=== PATIENT | male | born 1950 | race Caucasian/White ===

== ENCOUNTER 2024-01-31 14:47 | Inpatient (IN) | payer OTHER, MEDICARE, SELFPAY ==
[2024-01-31] VITALS (16 sets, daily range): BP systolic 135–175; BP diastolic 78–98; PULSE 68–77; RESP 14–21; TEMP 36.4–36.9; O2SAT 98–100; BMI 16.7
--- NOTE | ~2024-01-31 | MR_ITS ---
EXAMINATION: MR brain/brain stem wo/w con DATE: 02/01/2024 08:46 INDICATION: Altered mental status TECHNIQUE: Magnetic resonance imaging (MRI) of the brain and brainstem was performed without and with 15 mL Multihance intravenous contrast. Sequences included sagittal and axial T1-weighted SE, axial d iffusion-weighted FS SE, axial T2*-weighted GRE, axial T2-weighted FLAIR, and axial T2-weighted FSE. Postcontrast axial and coronal T1-weighted SE was obtained. Apparent diffusion coefficient (ADC) maps were created. COMPARISON: None. FINDINGS: There are no areas of restricted diffusion to suggest acute infarction. No intracranial hemorrhage or abnormal intracranial mass lesion. There are scattered areas of nonspecific increased T2-weighted si gnal intensity in the cerebral and pontine white matter, predominantly involving the deep and periven tricular white matter. There are no intraparenchymal signal abnormalities seen on the other pulse seq uences. The ventricles are symmetric and normal in size. There are no abnormal extra-axial fluid lela ections. Flow voids are seen in the cerebral arteries on the T2-weighted sequences consistent with th eir expected patency. Changes of right intraocular lens replacement. Mild mucosal thickening the ethm oid sinuses. There are no areas of abnormal enhancement on the post contrast images. IMPRESSION: 1. Moderate scattered nonspecific white matter and pontine white matter T2 hyperintensity most likely sequela of chronic small vessel ischemic disease. No acute intracranial process. Reviewed, dictated and finalized at location A. OGRAPHIC PROOFER APPRENTICE IMPRESSION: 1. Moderate scattered nonspecific white matter and pontine white matter T2 hype rintensity most likely sequela of chronic small vessel ischemic disease. No acu te intracranial process.
--- NOTE | ~2024-01-31 | CT_ITS ---
EXAMINATION: CT chest abdomen pelvis w con DATE: 01/31/2024 19:26 INDICATION: Altered mental status. Fall. No urinary output. TECHNIQUE: Computed tomography (CT) of the chest, abdomen, and pelvis was performed with 100 mL Omnip aque 350 intravenous contrast. Automated exposure control and iterative reconstruction technique were employed. The dose-length product was 601.28 mGy-cm. COMPARISON: None FINDINGS: CHEST CT: The lungs demonstrate mild atelectasis. A calcified right lung nodule and calcified mediastinal lymph nodes are consistent with old granulomatous disease. There is a 5 mm nodule in right lower lobe, lik jarett benign. There is a 5 mm nodule in right middle lobe, likely benign. No pleural effusion. The hear t size is normal. There are coronary artery calcifications. No pericardial effusion. ABDOMEN/PELVIS CT: The liver demonstrates heterogeneous attenuation and surface nodularity, consistent with cirrhosis. T here is a 3.4 cm mass of hyperenhancement in right hepatic lobe. There is a 5.3 cm mass of hyperenhan cement in right hepatic lobe. The spleen, gallbladder, pancreas, and adrenal glands are normal. Right kidney is absent. There is cortical thinning of left kidney. There is calcified atherosclerosis of t he aorta and many of the other arteries. There is a Amaro catheter in expected position. Stool disten ds the rectosigmoid. The appendix is not visualized. There is chronic total occlusion of proximal sup erior mesenteric artery with reconstitution. There is mild stenosis of celiac axis. There is no signi ficant stenosis of inferior mesenteric artery. There are no pathologically enlarged lymph nodes. Ther e is no free intraperitoneal fluid. There is an intertrochanteric fracture of proximal right femur wi th internal fixation. There is screw fixation of proximal left femur. There are chronic fractures of T10 and T12 vertebral bodies with changes of vertebroplasty at T10. IMPRESSION: 1. Cirrhosis of the liver. 2. Areas of hyperenhancement in the liver, which are indeterminate for hepatocellular carcinoma. Cons ider abdomen MRI without and with contrast. 3. 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 Reviewed, dictated and finalized at location E. ATRIC CLINICAL NURSE SPECIALIST IMPRESSION: 1. Cirrhosis of the liver. 2. Areas of hyperenhancement in the liver, which are indeterminate for hepatoce llular carcinoma. Consider abdomen MRI without and with contrast. 3. 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
--- NOTE | ~2024-01-31 | CT_ITS ---
EXAMINATION: CT brain wo con DATE: 01/31/2024 19:25 INDICATION: Altered mental status. TECHNIQUE: Computed tomography (CT) of the head was performed without intravenous contrast. The mA wa s adjusted according to patient size. Iterative reconstruction technique was employed. The dose-lengt h product was 681.00 mGy-cm. COMPARISON: None FINDINGS: There are scattered areas of low attenuation in the cerebral white matter. There is no intr acranial hemorrhage, acute infarction, or abnormal intracranial mass lesion. The ventricles are nader l in size. There are likely changes of right ocular lens replacement surgery. There is mild mucosal t hickening in the paranasal sinuses. The mastoid air cells are normal. IMPRESSION: 1. Moderate nonspecific cerebral white matter disease, which likely represents chronic small vessel i schemic disease. Reviewed, dictated and finalized at location E. YLENE TORCH BURNER IMPRESSION: 1. Moderate nonspecific cerebral white matter disease, which likely represents chronic small vessel ischemic disease.
[2024-01-31 16:12] LABS: Appearance Urine Clear (Clear); Bacteria Urine None Seen /hpf; Bilirubin Urine Negative (Negative); Blood Urine Negative (Negative); Color Urine Yellow (Yellow); Glucose Urine UA Negative (Negative); Ketones Urine 1+ mg/dL (Negative); Leukocyte Esterase Ur Negative LEU/UL (Negative); Nitrate Urine Negative (Negative); Non Pathogenic Casts 0-2; Protein Urine Trace mg/dL (Negative); RBC Urine 0-2 /hpf (0-2); Specific Grav Ur 1.032 (1.001-1.035); Squamous Epithelial Cell Urine None seen /hpf (Few); Urobilinogen Urine 0.2 mg/dL (<2.0); WBC Urine 0-5 /hpf; pH Urine 5.5 (5.0-9.0)
[2024-01-31 16:37] LABS: Add Urine Microscopic? YES
--- NOTE | 2024-01-31 16:40 | ED.MALEGU ---
HPI - Male Genitourinary General Chief complaint: Urogenital-Male <Maddie Larios MD - Last Filed: 02/01/24 09:25> Stated complaint: no urine output <Maddie Larios MD - Last Filed: 02/01/24 09:25> Time Seen by Provider: 01/31/24 16:39 <Maddie Larios MD - Last Filed: 02/01/24 09:25> History of Present Illness HPI Narrative: Patient is a 73-year-old male with history of prior kidney cancer, lung cancer, believed to be in remission, diabetes here with multiple complaints. Patient typically goes to [facility] in [place]. His primary care doctor is Dr. Cr. The family last saw him around or Monday. They state he was behaving his normal self at that time. On Monday he began having some slurred speech and they appreciated a possible left-sided facial droop. They note that his speech was fairly nonsensical and he was talking about traveling recently to places where he has not traveled. They note that when they visited him yesterday he seemed to be reaching at things that were not there. Yesterday he rolled out of bed and fell to the ground. He was sent to [facility] in [place]. There he had a CT scan performed of his brain which was negative and basic lab work and he was sent back to his facility. After discussions with his primary care doctor today patient's family and primary care doctor were concerned that something further is going on and recommended he go to [facility] for 2nd opinion. Family denies fever or chills. They deny cough or congestion. They do note that he seemed to have no urinary output since he left for the hospital yesterday. He currently lives at [facility] in [place]. Of note they have noted significant weight loss over last several months. He had a outpatient CT performed which had shown some lesions in his liver, he had a liver biopsy about 1 month ago and they had planned for him to have a repeat CT scan because they had a difficult time locating the lesions for biopsy. He reportedly had this CT performed at [address] on Monday. <Maddie Larios MD - Last Filed: 02/01/24 09:25> Patient is a 73-year-old male with history of prior kidney cancer, lung cancer, believed to be in remission, diabetes here with multiple complaints. Patient typically goes to [facility] in [place]. His primary care doctor is Dr. Cr. The family last saw him around or Monday. They state he was behaving his normal self at that time. On Monday he began having some slurred speech and they appreciated a possible left-sided facial droop. They note that his speech was fairly nonsensical and he was talking about traveling recently to places where he has not traveled. They note that when they visited him yesterday he seemed to be reaching at things that were not there. Yesterday he rolled out of bed and fell to the ground. He was sent to [facility] in [place]. There he had a CT scan performed of his brain which was negative and basic lab work and he was sent back to his facility. After discussions with his primary care doctor today patient's family and primary care doctor were concerned that something further is going on and recommended he go to [facility] for 2nd opinion. Family denies fever or chills. They deny cough or congestion. They do note that he seemed to have no urinary output since he left for the hospital yesterday. He currently lives at [facility]term in [place]. Of note they have noted significant weight loss over last several months. He had a outpatient CT performed which had shown some lesions in his liver, he had a liver biopsy about 1 month ago and they had planned for him to have a repeat CT scan because they had a difficult time locating the lesions for biopsy. He reportedly had this CT performed at [facility] on Monday. <Indira Moralez MD - Last Filed: 01/31/24 20:33> Related Data Home medications: Home Medic
[2024-01-31 18:01] LABS: Basophils Absolute Auto 0.1 K/mm3 (0.0-0.1); Basophils Percent Auto 0.7 % (0.2-1.2); Eosinophils Absolute Auto 0.1 K/mm3 (0-0.3); Hemoglobin 11.3 g/dL (14.0-18.0); Immature Granulocyte Absolute 0.04 K/mm3 (0.00-0.031); Immature Granulocyte Percent A 0.5 % (0-0.5); Lymphocytes Percent Auto 31.4 % (18.3-44.2); Mean Corpuscular HGB Conc 31.4 g/dl (32-36); Mean Corpuscular Hemoglobin 27.4 pg (26-34); Mean Corpuscular Volume 87.4 fl (80-100); Mean Platelet Volume 9.9 fl (7.4-10.4); Monocytes Absolute Auto 0.7 K/mm3 (0.1-0.6); Monocytes Percent Auto 7.9 % (2.6-8.5); Neutrophils Percent Auto 58.5 % (45.5-73.1); Platelet Count Result 209 k/mm3 (150-375); Red Blood Count 4.12 M/mm3 (4.6-6.20); Red Cell Distribution Width 16.3 % (11.5-14.5); White Blood Count 8.6 K/mm3 (4.5-10.0)
[2024-01-31 18:12] LABS: Ammonia < 9 umol/L (9-30); INR 1.1
[2024-01-31 18:17] LABS: Lactic Acid Reflex 0.9 mmol/L (0.7-2.0)
[2024-01-31 18:18] LABS: Alanine Aminotransferase 19 U/L (6-50); Albumin Level 4.1 g/dL (3.5-5.1); Alkaline Phosphatase 183 U/L (38-126); Anion Gap 8 mmol/L (8-16); Aspartate Amino Transferase 32 U/L (17-59); Bilirubin,Total 0.5 mg/dL (0.2-1.3); Blood Urea Nitrogen 25 mg/dL (9-20); CRP 0.8 mg/dL (<1.0); Calcium 10.1 mg/dL (8.4-10.2); Carbon Dioxide 25 mmol/L (22-30); Chloride 101 mmol/L (98-107); Estimated Glomerular Filt Rate > 60; Glucose 145 mg/dL (65-110); Lipase 34 U/L (23-300); Potassium 4.1 mmol/L (3.4-5.0); Sodium 134 mmol/L (137-145)
--- NOTE | 2024-01-31 19:29 | PC.NURSE ---
Assumed care of pt. Pt taken off bedpan to go to CT. No results in bedpan, but thinks he was successful. Family at bedside.
--- NOTE | 2024-01-31 20:21 | PM.IMHP ---
H&P: HPI History of Present Illness Date/Time: 01/31/24 20:21 Chief Complaint: ams Narrative: This is a 73-year-old male with past medical history significant for hepatocellular carcinoma, treated somewhere else, patient was brought to the emergency room due to altered mental status according to family members with significant decline in the last few days had been seen at another facility and discharged home however family persisted and brought him to our emergency room for further evaluation. At the time of my visit patient is obtunded, lethargic, unable to give any history. EXAMINATION: CT brain wo con DATE: 01/31/2024 19:25 INDICATION: Altered mental status. TECHNIQUE: Computed tomography (CT) of the head was performed without intravenous contrast. The mA was adjusted according to patient size. Iterative reconstruction technique was employed. The dose-length product was 681.00 mGy-cm. COMPARISON: None FINDINGS: There are scattered areas of low attenuation in the cerebral white matter. There is no intracranial hemorrhage, acute infarction, or abnormal intracranial mass lesion. The ventricles are normal in size. There are likely changes of right ocular lens replacement surgery. There is mild mucosal thickening in the paranasal sinuses. The mastoid air cells are normal. IMPRESSION: 1. Moderate nonspecific cerebral white matter disease, which likely represents chronic small vessel ischemic disease. EXAMINATION: CT chest abdomen pelvis w con DATE: 01/31/2024 19:26 INDICATION: Altered mental status. Fall. No urinary output. TECHNIQUE: Computed tomography (CT) of the chest, abdomen, and pelvis was performed with 100 mL Omnipaque 350 intravenous contrast. Automated exposure control and iterative reconstruction technique were employed. The dose-length product was 601.28 mGy-cm. COMPARISON: None FINDINGS: CHEST CT: The lungs demonstrate mild atelectasis. A calcified right lung nodule and calcified mediastinal lymph nodes are consistent with old granulomatous disease. There is a 5 mm nodule in right lower lobe, likely benign. There is a 5 mm nodule in right middle lobe, likely benign. No pleural effusion. The heart size is normal. There are coronary artery calcifications. No pericardial effusion. ABDOMEN/PELVIS CT: The liver demonstrates heterogeneous attenuation and surface nodularity, consistent with cirrhosis. There is a 3.4 cm mass of hyperenhancement in right hepatic lobe. There is a 5.3 cm mass of hyperenhancement in right hepatic lobe. The spleen, gallbladder, pancreas, and adrenal glands are normal. Right kidney is absent. There is cortical thinning of left kidney. There is calcified atherosclerosis of the aorta and many of the other arteries. There is a Amaro catheter in expected position. Stool distends the rectosigmoid. The appendix is not visualized. 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 There is mild stenosis of celiac axis. There is no significant stenosis of inferior mesenteric artery. There are no pathologically enlarged lymph nodes. There is no free intraperitoneal fluid. There is an intertrochanteric fracture of proximal right femur with internal fixation. There is screw fixation of proximal left femur. There are chronic fractures of T10 and T12 vertebral bodies with changes of vertebroplasty at T10. IMPRESSION: 1. Cirrhosis of the liver. 2. Areas of hyperenhancement in the liver, which are indeterminate for hepatocellular carcinoma. Consider abdomen MRI without and with contrast. 3. 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 Review of Systems Review of Systems: ROS unobtainable: Yes unobtainable due to mental status PMFSH Social History Social History Alcohol intake: never Substance use: never Substance use type: does not use Spiritual care concerns: No Meds Home Medications and Allergies Home Medicat
--- NOTE | 2024-01-31 21:30 | PC.NURSE ---
Family requesting to speak with ERP prior to pt going to floor.
[2024-02-01 05:25] VITALS: BP 154/90; PULSE 76; RESP 20; TEMP 35.7; O2SAT 100
--- NOTE | 2024-02-01 06:58 | PM.IMPN ---
Progress Note: A&P Assessment and Plan (1) Acute confusion: Code(s): R41.0 - Disorientation, unspecified Status: Acute Assessment and Plan: admit to regular medical floor MRI of the brain in the morning (2) Acute urinary retention: Code(s): R33.8 - Other retention of urine Status: Acute Assessment and Plan: resolved (3) Encephalopathy: Code(s): G93.40 - Encephalopathy, unspecified Status: Acute Assessment and Plan: likely to endocrine or metabolic (4) Adult failure to thrive: Code(s): R62.7 - Adult failure to thrive Status: Acute Assessment and Plan: patient with metastatic hepatocellular carcinoma consider hospice (5) 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 HEAD: Normocephalic, atraumatic. EYES: PERRLA and EOMI. ENT: Nares clear. Mucous membranes moist. NECK: Supple. CHEST: Clear to auscultation. No respiratory distress. HEART: Regular rate and rhythm. Normal peripheral pulses. ABDOMEN: Soft, nontender, nondistended. EXTREMITIES: Normal range of motion. No edema. SKIN: Warm, dry, no rash. NEURO: No focal deficits. Alert and oriented x2 Objective Data Vital Signs Vital Signs: Vital Signs - 24 hr 01/31/24 14:48 01/31/24 16:45 01/31/24 16:00 Temperature 98.4 F Pulse Rate 76 71 68 Respiratory Rate 16 16 16 Blood Pressure 160/98 H 148/85 H 154/90 H Pulse Oximetry 100 100 100 Oxygen Delivery Room Air 01/31/24 15:15 01/31/24 15:01 01/31/24 15:16 Temperature Pulse Rate 69 71 69 Respiratory Rate 16 17 17 Blood Pressure 152/87 H 152/87 H 150/78 H Pulse Oximetry 98 100 Oxygen Delivery 01/31/24 15:31 01/31/24 15:46 01/31/24 16:01 Temperature Pulse Rate 70 70 68 Respiratory Rate 14 17 19 Blood Pressure 154/80 H 169/93 H 154/90 H Pulse Oximetry 100 99 98 Oxygen Delivery 01/31/24 16:16 01/31/24 16:31 01/31/24 16:46 Temperature Pulse Rate 77 68 71 Respiratory Rate 20 18 17 Blood Pressure 148/86 H 167/94 H 148/85 H Pulse Oximetry 99 100 100 Oxygen Delivery 01/31/24 17:31 01/31/24 18:00 01/31/24 22:39 Temperature Pulse Rate 73 74 74 Respiratory Rate 16 21 H 21 H Blood Pressure 175/93 H 170/90 H Pulse Oximetry 100 100 100 Oxygen Delivery Room Air 01/31/24 22:35 02/01/24 05:25 Temperature 97.6 F 96.3 F L Pulse Rate 70 76 Respiratory Rate 18 20 Blood Pressure 135/87 154/90 H Pulse Oximetry 100 100 Oxygen Delivery Intake/Output Intake/Output: Intake & Output 01/29/24 01/30/24 01/31/24 02/01/24 23:59 23:59 23:59 23:59 Intake Total 0 Output Total 400 Balance -400 Meds/Results Radiology Results: ITS Impressions Head CT 01/31/24 19:25 IMPRESSION: 1. Moderate nonspecific cerebral white matter disease, which likely represents chronic small vessel ischemic disease. Chest/Abdomen/Pelvis CT 01/31/24 19:27 IMPRESSION: 1. Cirrhosis of the liver. 2. Areas of hyperenhancement in the liver, which are indeterminate for hepatocellular carcinoma. Consider abdomen MRI without and with contrast. 3. 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 Labs Labs: Laboratory Results - last 24 hr 01/31/24 01/31/24 01/31/24 15:58 17:51 17:52 WBC RBC Hgb Hct MCV MCH MCHC RDW Plt Count MPV Immature Gran % (Auto) Neut % (Auto) Lymph % (Auto) [place] % (Auto) Eos % (Auto) Baso % (Auto) Lymph # (Auto) [place] # (Auto) Eos # (Auto) Baso # (Auto) Abs Immat Gran (auto) Absolute Neuts (auto) Absolute Nucleated
[2024-02-01 07:26] LABS: Hematocrit 38.2 % (42.0-52.0); Hemoglobin 11.6 g/dL (14.0-18.0); Mean Corpuscular HGB Conc 30.4 g/dl (32-36); Mean Corpuscular Hemoglobin 26.9 pg (26-34); Mean Corpuscular Volume 88.4 fl (80-100); Mean Platelet Volume 10.5 fl (7.4-10.4); Platelet Count Result 209 k/mm3 (150-375); Red Blood Count 4.32 M/mm3 (4.6-6.20); Red Cell Distribution Width 16.2 % (11.5-14.5); White Blood Count 8.7 K/mm3 (4.5-10.0)
[2024-02-01 07:32] LABS: Alanine Aminotransferase 20 U/L (6-50); Albumin Level 4.2 g/dL (3.5-5.1); Alkaline Phosphatase 186 U/L (38-126); Anion Gap 12 mmol/L (8-16); Aspartate Amino Transferase 31 U/L (17-59); Bilirubin,Total 0.6 mg/dL (0.2-1.3); Blood Urea Nitrogen 24 mg/dL (9-20); Calcium 10.2 mg/dL (8.4-10.2); Carbon Dioxide 25 mmol/L (22-30); Chloride 99 mmol/L (98-107); Estimated CRCL calculation 44 ml/min; Estimated Glomerular Filt Rate > 60; Glucose 137 mg/dL (65-110); Sodium 136 mmol/L (137-145)
[2024-02-01] MEDS: PANTOPRAZOLE 40 MG TABLET PO (09:10)
[2024-02-01] MEDS: MAGNESIUM OXIDE 400 MG TABLET PO (09:11)
[2024-02-01] MEDS: LEVOTHYROXINE SODIUM 25 MCG TABLET PO (09:11)
[2024-02-01] MEDS: FLUoxetine HCL 20 MG CAPSULE 60 MG PO (09:11)
[2024-02-01] MEDS: APIXABAN 5 MG TABLET PO (09:11)
[2024-02-01] MEDS: FERROUS GLUCONATE 324 MG TABLET PO (09:11)
[2024-02-01] MEDS: buPROPion HCL XL (24 HR) 150 MG TABCR PO (09:11)
[2024-02-01] MEDS: ACETAMINOPHEN 325 MG TABLET 650 MG PO ×2 (09:11→09:19)
[2024-02-01] MEDS: SENNOSIDES 8.6 MG TABLET PO (09:11)
[2024-02-01] MEDS: LORazepam (*CRX) 0.5 MG TABLET PO (09:11)
[2024-02-01] MEDS: polyethylene glycoL 3350 17 GM POWD.PACK PO (09:12)
[2024-02-01 09:18] VITALS: BP 124/106; PULSE 76; RESP 14; O2SAT 100
[2024-02-01] MEDS: METOPROLOL TARTRATE 50 MG TAB PO (09:18)
[2024-02-01] MEDS: ATORVASTATIN 40 MG TABLET PO (09:19)
--- NOTE | 2024-02-01 11:58 | WPDNEURCNPN ---
Assessment and Plan Assessment and plan (1) Metabolic encephalopathy: Code(s): G93.41 - Metabolic encephalopathy Status: Acute Assessment and Plan: Patient has a myoclonic jerks or asterixis 6 which are significant. Underlying factors such as sepsis should be looked into. Ammonia level was normal this of course does not exclude possibility of hepatic encephalopathy which is most likely given the fact that he has history of cirrhosis of liver and has been drinking alcohol and probably not eating very much. (2) Cirrhosis of liver: Code(s): K74.60 - Unspecified cirrhosis of liver Status: Acute Assessment and Plan: Most likely longstanding cirrhosis of liver from drinking alcohol. Possible hepatocellular carcinoma has been raised. Patient had undergone biopsy but we do not (3) Metastatic renal cell carcinoma: Code(s): C64.9 - Malignant neoplasm of unspecified kidney, except renal pelvis Status: Acute Assessment and Plan: The patient has been under care of oncologist since the diagnosis of major in 2021. Patient had chemotherapy and nephrectomy (4) Chronic alcoholism: Code(s): F10.20 - Alcohol dependence, uncomplicated Status: Acute Assessment and Plan: Patient has a long history of drinking alcohol and had been a recurrence recently according to his sisters Plan I talked to the family members the 3 ladies were very concerned about him. His overall condition and prognosis is guarded since the been a significant decline in his condition over the last 2 years. He has been bed last several months. He appears cachectic and confused and has myoclonic jerks apathy look for any underlying infection and treated if you find along. Seizure lactulose. We can check serum B12 D level keep him on his vitamin supplementation however family is already looking at possibly making him DNR and comfort measures and I shall be glad to discuss this further Consult date: 02/01/24 Time Seen: 11:59 Reason for consult: Changes in mental status HPI: Yunier Madden is a 73 year old male history of renal cancer and cirrhosis of liver admitted to the hospital with significant decline in the mental status over the last 4- 5 days. Three of the family members were present at the time of this evaluation and the indeed very concerned. The patient has been battling with the cancer to lung herpes had a kidney surgery 2021 and 2 he has been dealing with the cancer doctors at [facility] if the family thinks that to while he was living by himself since he was continued to decline. He had a fracture of the last July. To that he has been more less bed-bound. His overall decline but the mental status with okay until recently. He might have had some episodes of confusion since he would not show up for the appointments accordingly the oldest sister he does have a long history of drinking alcohol. No history of stroke. MRI of the brain and CT scan of brain performed on this admission did not show any significant abnormalities except some chronic aging changes. Review of Systems Review of Systems: No history of recent trauma or febrile illness preceding this admission. ROS unobtainable: Yes unobtainable due to mental status PMFSH Past Medical History Medical History (Updated 02/01/24 @ 12:05 by Rigo Snyder MD) Chronic alcoholism Cirrhosis of liver Metabolic encephalopathy Metastatic renal cell carcinoma Social History Social History Alcohol intake: never Substance use: never Substance use type: does not use Spiritual care concerns: No Meds Home Medications and Allergies Home Medications Medication Instructions Recorded Confirmed Type Milk of Magnesia 400 mg BYMOUTH DAILY PRN 02/01/24 02/01/24 History Constipation Miralax 17 g DAILY 02/01/24 02/01/24 History O'Brien 5 mg BID PRN Pain 02/01/24 02/01/24 History acetaminophen 650 mg 650 mg PO Q
--- NOTE | 2024-02-01 13:23 | PCNEURO ---
Cancelling EEG. Patient family does not wany any more test done.
[2024-02-01 14:00] VITALS: BP 128/99; PULSE 78; RESP 20; TEMP 36.6; O2SAT 98
[2024-02-01 14:41] LABS: Folic Acid 5.3 ng/mL (2.76->20)
--- NOTE | 2024-02-01 14:48 | P.DS_ITS ---
DS: Admitting Diagnosis Discharge Date 02/01/24 Admitting Diagnosis AMS DS: Discharge Diagnosis Discharge Diagnosis (1) Acute confusion: Code(s): R41.0 - Disorientation, unspecified Status: Acute Assessment and Plan: * family bedside noted patient has been confused since Monday. 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 observed with jerking movement, reaching for objects when none are present * neurology was consulted * after neurological exam and discussion with family, family states they would like no further treatment. family expressed that they would like to return to [facility] and they will initiate hospice services. family declined initiation of hospice service while in hospital. patient's sister and POA Cee, verbalized that she would not like any further assessment, labs, or test. patient observed verbalizing agreeance with no further assessment and being discharged to [facility] facility. (2) Acute urinary retention: Code(s): R33.8 - Other retention of urine Status: Acute Assessment and Plan: * Amaro placed in the ER, after note that patient has not voided in greater than 10 hours * Amaro in place draining clear yellow urine * patient verbalized he is without pain * patient is immobile and has been immobile since July, when he had a hip fracture incident. * patient and POA Cee and family at bedside and wished for patient to have no further assessment labs or tests. expressed that they would like no further treatment. request for discharge back to [facility] facility and there they will establish hospice services. (3) Encephalopathy: Code(s): G93.40 - Encephalopathy, unspecified Status: Acute Assessment and Plan: * likely endocrine or metabolic * most likely related to liver issues * patient presents with altered mental status, had periods of orientation * Neurology was consulted and suggest most likely metabolic * neurology note myotonic jerks, ammonia level normal however does not exclude possibility of hepatic encephalopathy given history of cirrhosis * patient and POA Cee and family at bedside and wished for patient to have no further assessment labs or tests. expressed that they would like no further treatment. request for discharge back to [facility] facility and there they will establish hospice services. (4) Adult failure to thrive: Code(s): R62.7 - Adult failure to thrive Status: Acute Assessment and Plan: * discussion with family notes that patient has progressively declined over last 2 years. new confusion was noted Monday. family expressed bed patient would eat minimally, has lost great amount weight, had been previously hospitalized for this, and refused feeding tube. * discussed the options for treatment, family declined * patient and POA Cee and family at bedside and wished for patient to have no further assessment labs or tests. expressed that they would like no further treatment. request for discharge back to [facility] facility and there they will establish hospice services. 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
--- NOTE | 2024-02-01 14:48 | PM.DS ---
DS: Admitting Diagnosis Discharge Date 02/01/24 Admitting Diagnosis AMS DS: Discharge Diagnosis Discharge Diagnosis (1) Acute confusion: Code(s): R41.0 - Disorientation, unspecified Status: Acute Assessment and Plan: family bedside noted patient has been confused since Monday. 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 observed with jerking movement, reaching for objects when none are present neurology was consulted after neurological exam and discussion with family, family states they would like no further treatment. family expressed that they would like to return to [facility] facility and they will initiate hospice services. family declined initiation of hospice service while in hospital. patient's sister and POA Cee, verbalized that she would not like any further assessment, labs, or test. patient observed verbalizing agreeance with no further assessment and being discharged to [facility] facility. (2) Acute urinary retention: Code(s): R33.8 - Other retention of urine Status: Acute Assessment and Plan: Amaro placed in the ER, after note that patient has not voided in greater than [address] draining clear yellow urine patient verbalized he is without pain patient is immobile and has been immobile since July, when he had a hip fracture incident. patient and POA Cee and family at bedside and wished for patient to have no further assessment labs or tests. expressed that they would like no further treatment. request for discharge back to [facility] facility and there they will establish hospice services. (3) Encephalopathy: Code(s): G93.40 - Encephalopathy, unspecified Status: Acute Assessment and Plan: likely endocrine or metabolic most likely related to liver issues patient presents with altered mental status, had periods of orientation Neurology was consulted and suggest most likely metabolic neurology note myotonic jerks, ammonia level normal however does not exclude possibility of hepatic encephalopathy given history of cirrhosis patient and POA Cee and family at bedside and wished for patient to have no further assessment labs or tests. expressed that they would like no further treatment. request for discharge back to [facility] facility and there they will establish hospice services. (4) Adult failure to thrive: Code(s): R62.7 - Adult failure to thrive Status: Acute Assessment and Plan: discussion with family notes that patient has progressively declined over last 2 years. new confusion was noted Monday. family expressed bed patient would eat minimally, has lost great amount weight, had been previously hospitalized for this, and refused feeding tube. discussed the options for treatment, family declined patient and POA Cee and family at bedside and wished for patient to have no further assessment labs or tests. expressed that they would like no further treatment. request for discharge back to [facility] facility and there they will establish hospice services. 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 No acute intracranial process. family expressed histo
--- NOTE | 2024-02-01 14:59 | PDONCCN ---
HPI - Date of Consult Date/Time: 02/01/24 14:59 Requesting Physician: Terry Rincon MD Primary Care Provider: Dee Dee Cr MD - Consult Narrative Reason for consult: Liver Cancer Narrative: Yunier Madden is a 73 year old male with a past medical history of .. He has been admitted for altered mental status. CT scan shows cirrhosis of the liver and hyperenhancement in liver likely hepatocellular carcinoma. He has a history of chronic alcohol use. [facility] Medical History: Medical History (Last Updated 02/01/24 @ 12:05 by Rigo Snyder MD) Chronic alcoholism Cirrhosis of liver Metabolic encephalopathy Metastatic renal cell carcinoma - Social History Social History: Social History Alcohol Use: Alcohol intake: never Substance Use: Substance use: never Substance use type: does not use Others: Spiritual care concerns: No Exam - Vital Signs Vital Signs - 24 hr 01/31/24 16:45 01/31/24 16:00 01/31/24 15:15 Temperature Pulse Rate 71 68 69 Respiratory Rate 16 16 16 Blood Pressure 148/85 H 154/90 H 152/87 H Pulse Oximetry 100 100 98 Oxygen Delivery 01/31/24 15:01 01/31/24 15:16 01/31/24 15:31 Temperature Pulse Rate 71 69 70 Respiratory Rate 17 17 14 Blood Pressure 152/87 H 150/78 H 154/80 H Pulse Oximetry 100 100 Oxygen Delivery 01/31/24 15:46 01/31/24 16:01 01/31/24 16:16 Temperature Pulse Rate 70 68 77 Respiratory Rate 17 19 20 Blood Pressure 169/93 H 154/90 H 148/86 H Pulse Oximetry 99 98 99 Oxygen Delivery 01/31/24 16:31 01/31/24 16:46 01/31/24 17:31 Temperature Pulse Rate 68 71 73 Respiratory Rate 18 17 16 Blood Pressure 167/94 H 148/85 H 175/93 H Pulse Oximetry 100 100 100 Oxygen Delivery 01/31/24 18:00 01/31/24 22:39 01/31/24 22:35 Temperature 36.4 C Pulse Rate 74 74 70 Respiratory Rate 21 H 21 H 18 Blood Pressure 170/90 H 135/87 Pulse Oximetry 100 100 100 Oxygen Delivery Room Air 02/01/24 05:25 02/01/24 09:18 02/01/24 09:18 Temperature 35.7 C L Pulse Rate 76 76 76 Respiratory Rate 20 14 Blood Pressure 154/90 H 124/106 H Pulse Oximetry 100 100 Oxygen Delivery 02/01/24 09:10 02/01/24 14:00 Temperature 36.6 C Pulse Rate 78 Respiratory Rate 20 Blood Pressure 128/99 H Pulse Oximetry 98 Oxygen Delivery Room Air - Lab Results Laboratory Last Values WBC 8.7 K/mm3 (4.5-10.0) 02/01/24 07:08 RBC 4.32 M/mm3 (4.6-6.20) L 02/01/24 07:08 Hgb 11.6 g/dL (14.0-18.0) L 02/01/24 07:08 Hct 38.2 % (42.0-52.0) L 02/01/24 07:08 MCV 88.4 fl (80-100) 02/01/24 07:08 MCH 26.9 pg (26-34) 02/01/24 07:08 MCHC 30.4 g/dl (32-36) L 02/01/24 07:08 RDW 16.2 % (11.5-14.5) H 02/01/24 07:08 Plt Count 209 k/mm3 (150-375) 02/01/24 07:08 MPV 10.5 fl (7.4-10.4) H 02/01/24 07:08 Immature Gran % (Auto) 0.5 % (0-0.5) 01/31/24 17:53 Neut % (Auto) 58.5 % (45.5-73.1) 01/31/24 17:53 Lymph % (Auto) 31.4 % (18.3-44.2) 01/31/24 17:53 [place] % (Auto) 7.9 % (2.6-8.5) 01/31/24 17:53 Eos % (Auto) 1.0 % (0-4.4) 01/31/24 17:53 Baso % (Auto) 0.7 % (0.2-1.2) 01/31/24 17:53 Lymph # (Auto) 2.70 K/mm3 (0.9-3.2) 01/31/24 17:53 [place] # (Auto) 0.7 K/mm3 (0.1-0.6) H 01/31/24 17:53 Eos # (Auto) 0.1 K/mm3 (0-0.3) 01/31/24 17:53 Baso # (Auto) 0.1 K/mm3 (0.0-0.1) 01/31/24 17:53 Abs Immat Gran (auto) 0.04 K/mm3 (0.00-0.031) H 01/31/24 17:53 Absolute Neuts (auto) 5.0 K/mm3 (1.3-6.7) 01/31/24 17:53 Absolute Nucleated RBC 0.0 K/mm3 (0.0-0.012) 01/31/24 17:53 Nucleated RBC % 0.0 % (0.0-0.2) 01/31/24 17:53 PT 15.0 Seconds (11.1-14.7) H 01/31/24 17:52 INR 1.1 01/31/24 17:52 APTT 37.0 SECONDS (22.3-36.8) H 01/31/24 17:52 Sodium 136 mmol/L (137-145) L 02/01/24 07:08 Potassium 4.0 mmol/L (3.4-5.0) 02/01/24 07:08
[2024-02-01 16:38] LABS: SARS-CoV-2 RNA PCR Negative (Negative)
[2024-02-01 21:01] LABS: Free T4 Free Thyroxine Reflex 1.45 ng/dL (0.78-2.19)
[2024-02-01 22:21] LABS: Total Triiodothyronine (T3) 0.88 NG/ML (0.97-1.69)
== END 2024-02-01 17:35 | disposition hospice, home (50) | DRG 71 ==
LOC: ANHED 19:30 → ANH3MEDSUR 21:28
PROVIDERS: Psychiatry & Neurology Neurology; Student in an Organized Health Care Education/Training Program; Admitting Provider Internal Medicine; Emergency Provider Emergency Medicine; PCP Family Medicine; Visit Provider Nurse Practitioner Family
DX: G93.41 Metabolic encephalopathy (principal); R64 Cachexia; Z68.1 Body mass index [BMI] 19.9 or less, adult; R62.7 Adult failure to thrive; K70.30 Alcoholic cirrhosis of liver without ascites; E11.9 Type 2 diabetes mellitus without complications; G25.3 Myoclonus; K76.9 Liver disease, unspecified; R33.9 Retention of urine, unspecified; F10.20 Alcohol dependence, uncomplicated; Z85.118 Personal history of other malignant neoplasm of bronchus and lung; Z85.528 Personal history of other malignant neoplasm of kidney; Z11.52 Encounter for screening for COVID-19; Z74.01 Bed confinement status
CPT/HCPCS: 36415; 70450; 70553; 71260; 74177; 80053; 81001; 82140; 82248; 82306; 82607; 82746; 83605; 83690; 84439; 84443; 84480; 85025; 85027; 85610; 85730; 86140; 87040; 87076; 87635; 99285; A9270; A9577; Q9967